=== PATIENT | male | born 1970 | race Hispanic/Latino ===

== ENCOUNTER 2017-05-20 02:54 | Emergency (ER) | payer MEDICAID ==
[2017-05-20 03:43] VITALS: BP 187/104
== END 2017-05-20 06:35 | disposition left against medical advice (07) ==
LOC: ED 02:54
DX: F32.9 Major depressive disorder, single episode, unspecified (principal); Z53.21 Procedure and treatment not carried out due to patient leaving prior to being seen by health care provider